=== PATIENT | female | born 1970 | race Hispanic/Latino ===

== ENCOUNTER 2017-10-12 17:54 | Emergency (ER) | payer MEDICAID, OTHER ==
[2017-10-12 18:00] VITALS: BP 173/92; PULSE 88; RESP 20; O2SAT 96
[2017-10-12] MEDS ORDERED: Tdap Vaccine 0.5 ml Vial (10-64 yrs) IM ONE ×2 (18:29→18:39)
[2017-10-12] MEDS ORDERED: Amoxicillin-Clav 875-125 mg Tab PO STA (18:29)
[2017-10-12] MEDS ORDERED: Bacitracin 500 Units/gm Oint Foilpak UD TOP ONE (18:29)
[2017-10-12] MEDS ORDERED: Bacitracin 500 Units/gm Oint Foilpak UD ONE (18:38)
[2017-10-12] MEDS ORDERED: Amoxicillin-Clav 875-125 mg Tab PO ONE (18:38)
--- NOTE | 2017-10-12 18:38 | C.PDOC ---
History Of Present Illness 47 yo female c/o dog bite to the left leg one hour ago. 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 Police was called and owners information was taken down. Pt notes she is not up to date on tetanus. Time Seen by Provider: 10/12/17 18:21 Chief Complaint (Nursing): Bite History Per: Patient History/Exam Limitations: no limitations Onset/Duration Of Symptoms: Hrs Current Symptoms Are (Timing): Still Present Past Medical History Vital Signs: Last Vital Signs Temp Pulse 88 10/12/17 17:59 Resp 20 10/12/17 17:59 BP 173/92 H 10/12/17 17:59 Pulse Ox 96 10/12/17 17:59 - Medical History PMH: Asthma, Diabetes, HTN, Hypercholesterolemia Family History: States: Diabetes - Social History Hx Tobacco Use: Yes Hx Alcohol Use: No Hx Substance Use: No - Immunization History Hx Tetanus Toxoid Vaccination: Yes ("LAST YEAR") Hx Influenza Vaccination: No Hx Pneumococcal Vaccination: No Review Of Systems Constitutional: Negative for: Fever Musculoskeletal: Positive for: Leg Pain Neurological: Negative for: Weakness, Numbness Physical Exam - Physical Exam Appears: Well, Non-toxic, No Acute Distress Skin: Warm, Dry, Other ((+) puncture wounds to the lateral left leg ) Head: Atraumatic, Normacephalic Eye(s): bilateral: Normal Inspection, EOMI Nose: Normal Oral Mucosa: Moist Neck: Normal, Normal ROM, Supple Chest: Symmetrical Respiratory: No Accessory Muscle Use Back: Normal Inspection Extremity: Normal ROM, Capillary Refill (<2 sec), No Swelling Pulses: Left Dorsalis Pedis: Normal, Right Dorsalis Pedis: Normal Neurological/Psych: Oriented x3, Normal Speech, Normal Motor, Normal Sensation Gait: Steady ED Course And Treatment O2 Sat by Pulse Oximetry: 96 Progress Note: Wound was cleansed and dressed. Bacitracin applied. Instructed wound care, wound check in 2 days and f/u with intermodal owner operator truck driver for dog vaccinations. Disposition - Disposition Disposition: HOME/ ROUTINE Disposition Time: 18:34 Condition: STABLE Additional Instructions: Wound check in 2 days. Follow up with police report for dog vaccinations and your primary medical doctor or clinic in 2-5 days for re-evaluation. Take medications as prescribed. Return to the emergency department at any time if symptoms persist or worsen. Prescriptions: Amoxicillin/Clavulanate [Augmentin 875 MG-125 MG] 1 tab PO BID #14 tab Mupirocin 2% Ointment [Bactroban Ointment] 1 appl TP TID #1 tube Instructions: Animal Bites (DC) - Clinical Impression Clinical Impression: Dog bite
[2017-10-12 18:41] VITALS: TEMP 97.9
== END 2017-10-12 18:42 | disposition home or self-care (01) ==
LOC: C.ER 17:54
DX: S81.832A Puncture wound without foreign body, left lower leg, initial encounter (principal); W54.0XXA Bitten by dog, initial encounter; Y92.89 Other specified places as the place of occurrence of the external cause

== ENCOUNTER 2018-04-06 19:00 | Emergency (ER) | payer MEDICAID, OTHER ==
--- NOTE | 2018-04-06 19:28 | C.PDOC ---
History Of Present Illness 47 year old female patient with hx of HTN presents to the ER c/o left knee 2 hours ago [place] fall [place] a [place]. Patient denies LOC, weakness, numbness and head trauma. Of note: Patient is compliant with her BP medication but does not know of the name. Patient denies chest pain, SOB, palpitations, and dizziness. Time Seen by Provider: 04/06/18 19:08 Chief Complaint (Nursing): Lower Extremity Problem/Injury History Per: Patient History/Exam Limitations: no limitations Onset/Duration Of Symptoms: Hrs (x2) Current Symptoms Are (Timing): Still Present Past Medical History Reviewed: Historical Data, Nursing Documentation, Vital Signs Vital Signs: Last Vital Signs Temp 98 F 04/06/18 19:53 Pulse 78 04/06/18 19:53 Resp 18 04/06/18 19:53 BP 160/80 H 04/06/18 19:53 Pulse Ox 99 04/06/18 19:53 - Medical History PMH: Asthma, Diabetes, HTN, Hypercholesterolemia Family History: States: Diabetes - Social History Hx Tobacco Use: Yes Hx Alcohol Use: No Hx Substance Use: No - Immunization History Hx Tetanus Toxoid Vaccination: Yes Hx Influenza Vaccination: Yes Hx Pneumococcal Vaccination: Yes Review Of Systems Constitutional: Negative for: Other (head trauma; LOC) Cardiovascular: Negative for: Chest Pain Respiratory: Negative for: Shortness of Breath Musculoskeletal: Positive for: Leg Pain (left knee ) Neurological: Negative for: Weakness, Numbness, Dizziness Physical Exam - Physical Exam Appears: Non-toxic, No Acute Distress Skin: Normal Color, Warm, Dry Head: Atraumatic, Normacephalic Eye(s): bilateral: Normal Inspection, EOMI Nose: Normal Oral Mucosa: Moist Neck: Normal ROM, Supple Chest: Symmetrical Respiratory: No Accessory Muscle Use, Other (speaking in full sentences) Extremity: Normal ROM, Tenderness (proximal lateral lower leg), Capillary Refill (<2 sec), Swelling (proximal lateral lower leg ), Other (bruising proximal lateral of lower leg) Pulses: Left Dorsalis Pedis: Normal, Right Dorsalis Pedis: Normal Neurological/Psych: Oriented x3, Normal Speech, No Other (focal deficit) ED Course And Treatment O2 Sat by Pulse Oximetry: 96 (RA) Pulse Ox Interpretation: Normal Progress Note: Plans: -- Tylenol. Reassess: Patient offered XR of leg but declined. Patient is resting comfortably. Tolerating PO. Patient is informed on the risk of untreated HTN and is encouraged to go to doctors appointment scheduled on Thursday for evaluation of her HTN medication. Patient received MARCELINA wrap for leg. Disposition - Disposition Referrals: Shaik Patiño MD [Staff Provider] - Jaron Shin III, MD [Staff Provider] - Disposition: HOME/ ROUTINE Disposition Time: 19:39 Condition: STABLE Additional Instructions: Rest, ice and elevate the area. FOllow up with your doctor in 1-2 days. Repeat your blood pressure. Return to ER if symptoms persist or worsen. 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 - Scribe Statement The provider has reviewed the documentation as recorded by the Scribe Lois Bonilla All medical record entries made by the Scribe were at my direction and personally dictated by me. I have reviewed the chart and agree that the record accurately reflects my personal performance of the history, physical exam, medical decision making, and the department course for this patient. I have also personally directed, reviewed, and agree with the discharge instructions and disposition.
[2018-04-06 19:54] VITALS: BP 160/80; PULSE 78; RESP 18; TEMP 98
[2018-04-06 20:45] VITALS: O2SAT 96
== END 2018-04-06 19:54 | disposition home or self-care (01) ==
LOC: C.ER 19:00
DX: S80.12XA Contusion of left lower leg, initial encounter (principal); W18.30XA Fall on same level, unspecified, initial encounter; Y92.89 Other specified places as the place of occurrence of the external cause

== ENCOUNTER 2018-07-21 15:07 | Emergency (ER) | payer OTHER ==
[2018-07-21 15:17] VITALS: RESP 18; O2SAT 96
--- NOTE | 2018-07-21 15:34 | C.PDOC ---
History Of Present Illness 48 y/o female presents to the ED for evaluation of left rib pain s/p trip and fall on 07/09/18. States she tripped over a stool, falling onto her left side. Patient did not seek medical attention at that time. Pain worsens with movement, no change on deep inspiration. Reports taking Tylenol without relief. Otherwise patient denies any SOB, vomiting, back pain, fever, chills, or urinary symptoms. Pain has been worsening over the last 2 days. No new injury. - HPI Time Seen by Provider: 07/21/18 15:21 Chief Complaint (Nursing): Rib Injury History Per: Patient History/Exam Limitations: no limitations Injury Occurred (Timing): Days Ago: (12) Past Medical History Reviewed: Historical Data, Nursing Documentation, Vital Signs Vital Signs: Last Vital Signs Temp 97.6 F 07/21/18 15:17 Pulse 75 07/21/18 15:17 Resp 18 07/21/18 15:17 BP 170/102 H 07/21/18 15:17 Pulse Ox 96 07/21/18 15:17 - Medical History PMH: Asthma, Diabetes, HTN, Hypercholesterolemia Family History: States: Diabetes - Social History Hx Tobacco Use: Yes Hx Alcohol Use: No Hx Substance Use: No - Immunization History Hx Tetanus Toxoid Vaccination: Yes Hx Influenza Vaccination: Yes Hx Pneumococcal Vaccination: Yes Review Of Systems Except As Marked, All Systems Reviewed And Found Negative. Constitutional: Negative for: Fever, Chills Eyes: Negative for: Vision Change Cardiovascular: Positive for: Other (right lateral rib pain). Negative for: Chest Pain Respiratory: Negative for: Shortness of Breath, SOB with Excertion, Pleuritic Pain Gastrointestinal: Negative for: Nausea, Vomiting Musculoskeletal: Negative for: Neck Pain, Back Pain Skin: Negative for: Lesions, Bruising Neurological: Negative for: Weakness, Numbness, Incoordination, Dizziness Physical Exam - Physical Exam Appears: Non-toxic, No Acute Distress Skin: Warm, Dry Head: Atraumatic, Normacephalic Eye(s): bilateral: Normal Inspection, PERRL, EOMI Oral Mucosa: Moist Neck: Normal ROM Chest: Tenderness (over the left lateral rib cage, no crepitus), No Ecchymosis (or signs of contusion) Cardiovascular: Rhythm Regular, No Murmur, Other (Normal S1, S2) Respiratory: Normal Breath Sounds (equal bilaterally), No Rales, No Rhonchi, No Wheezing Gastrointestinal/Abdominal: Soft, No Tenderness, No Distention Extremity: Bilateral: Normal Color And Temperature, Normal ROM Pulses: Left Radial: Normal, Right Radial: Normal Neurological/Psych: Oriented x3 ED Course And Treatment O2 Sat by Pulse Oximetry: 96 (RA) Pulse Ox Interpretation: Normal - Other Rad Rib/Chest x-ray X-Ray: Interpreted by Me, Viewed By Me Interpretation: (-) rib fracture or acute disease Medical Decision Making Medical Decision Making: Impression: Left rib pain, s/p Fall Plan: --Left Ribs/Chest X-Ray Patient informed of negative x-ray. Given naproxen 500 mg PO in the ED, and provided with prescription for the same to go home. Disposition Counseled Patient/Family Regarding: Studies Performed, Diagnosis, Need For Followup - Disposition Referrals: Shaik Patiño MD [Staff Provider] - Disposition: HOME/ ROUTINE Disposition Time: 16:43 Condition: GOOD Additional Instructions: LORENA LLOYD, thank you for letting us take care of you today. Your provider was Nargis Santana MD and you were treated for RIB PAIN. The emergency medical care you received today was directed at your acute symptoms. If you were prescribed any medication, please fill it and take as directed. It may take several days for your symptoms to resolve. Return to the Emergency Department if your symptoms worsen, do not improve, or if you have any other problems. Please contact your doctor for a follow up appointment in 1-2 days. Bring any paperwork you were given at discharge with you along with any medications you are taking to your follow up visit. Our treatment cannot replace ongoing medical care by a primary care provider outside of the emergency department. Thank you for allowing the [facility] team to be part of your care today. If you had an X-Ray or CT scan: A Radiologist will review the ED reading if any change in treatment is needed we will contact you. Prescriptions: Naproxen [Naprosyn] 500 mg PO BID #30 tablet Instructions: Bruised Rib (DC) Forms: [employer] (Divehi), General Discharge Instructions - POA Present On Arrival: None - Clinical Impression Clinical Impression: Contusion of rib on left side - Scribe Statement The provider has reviewed the documentation as recorded by the Bartolome Chester Provider Attestation: All medical record entries made by the Bartolome were at my direction and personally dictated by me. I have reviewed the chart and agree that the record accurately reflects my personal performance of the history, physical exam, medical decision making, and the department course for this patient. I have also personally directed, reviewed, and agree with the discharge instructions and disposition.
[2018-07-21] MEDS ORDERED: Naproxen 550 mg Tab PO STA (16:41)
[2018-07-21 16:47] VITALS: BP 173/97; PULSE 74; TEMP 97.8
[2018-07-21] MEDS ORDERED: Naproxen 550 mg Tab PO ONE (16:48)
--- NOTE | 2018-07-22 09:58 | RAD ---
Date of service: 07/21/2018 PROCEDURE: Radiographs of the Chest and Left Ribs. HISTORY: injury COMPARISON: 03/29/2013. TECHNIQUE: Frontal radiograph of the chest and multiple oblique radiographs of the left ribs were obtained. FINDINGS: LEFT RIBS: No fracture or focal lesion visualized. LUNGS: Clear. PLEURA: No pneumothorax or pleural fluid. CARDIOVASCULAR: Mild cardiomegaly suspect. No significant appearing pulmonary venous congestion. There is absence of aortic atherosclerotic calcification on x-ray. OTHER FINDINGS: None. IMPRESSION: No pulmonary infiltrate. Mild cardiomegaly. No significant appearing pulmonary venous congestion.. . No left rib fracture. No pneumothorax seen.
== END 2018-07-21 16:53 | disposition home or self-care (01) ==
LOC: C.ER 15:07
DX: S20.212A Contusion of left front wall of thorax, initial encounter (principal); W01.0XXA Fall on same level from slipping, tripping and stumbling without subsequent striking against object, initial encounter; Y92.9 Unspecified place or not applicable